=== PATIENT | female | born 1960 | race Caucasian/White ===

== ENCOUNTER 2017-02-21 08:38 | Inpatient (IN) | payer MEDICAID ==
--- NOTE | 2017-02-21 10:10 | US ---
VL Duplex Lwr Ext Veins Comp INDICATION: PAIN IN CALF FINDINGS: Ultrasound examination of bilateral lower extremities using Doppler and compressive techniq ue demonstrates that the common femoral, femoral, and popliteal veins are patent, and negative for th rombus. The calf veins were segmentally visualized and are negative where seen. IMPRESSION: Bilateral lower extremities negative for deep venous thrombosis.
[2017-02-21] MEDS ORDERED: Lidocaine 2% 20 ML MDV ONE (11:32)
[2017-02-21] MEDS ORDERED: Bupivacaine 0.5% 50 ML MDV ONE (11:32)
[2017-02-21] MEDS ORDERED: Propofol 200 MG/20 ML SDV ONE ×2 (11:39→12:43)
[2017-02-21] MEDS ORDERED: Lactated Ringers 1,000 ML IV SCH (11:45)
[2017-02-21] MEDS ORDERED: ceFAZolin 2 GM in Premix Bag 1 BAG IV ONE (12:00)
[2017-02-21] MEDS ORDERED: ceFAZolin 2 GM in Sodium Chloride 0.9% 50 ML IV ONE (12:00)
[2017-02-21] MEDS ORDERED: Midazolam 1 MG/ML 2 ML SDV ONE (12:25)
[2017-02-21] MEDS ORDERED: fentaNYL 100 MCG/2 ML SDV ONE (12:25)
[2017-02-21] MEDS ORDERED: fentaNYL 100 MCG/2 ML SDV IVPUSH ONE ×2 (13:28→14:00)
[2017-02-21] MEDS ORDERED: Ondansetron 4 MG Tab.DIS PO PRN (14:41)
[2017-02-21] MEDS ORDERED: Non-Formulary Medication 1 Each (Hydroxyzine Pamoate [Vistaril] 25 MG) PO PRN (14:41)
[2017-02-21] MEDS ORDERED: oxyCODONE 5 MG Tab PO PRN (14:41)
[2017-02-21] MEDS ORDERED: Morphine 2 MG/ML Syringe IVPUSH PRN (14:41)
[2017-02-21] MEDS ORDERED: Acetaminophen 325 MG Tab PO PRN (14:41)
[2017-02-21] MEDS ORDERED: Ondansetron 4 MG/2 ML SDV IV PRN (14:41)
--- NOTE | 2017-02-21 14:47 | PCM.PN ---
- General Info Date of Service: 02/21/17 Functional Status: Reports: Pain Controlled - Review of Systems General: Denies: Fever Musculoskeletal: Reports: Foot Pain Skin: Reports: Rash Systems Review Comment:: Estefany was admitted following surgical debridement and drainage of an abscess on her right foot. Her pain has been fairly well-controlled since that time though it has been building up more recently. She reports moderate pain at this time which is similar to before surgery. Vital signs have been stable since surgery. Gram stain did not reveal any bacteria. Wound culture is pending at this time. Patient does report a history of liver enzyme elevation secondary to Pip/Tazo. - Patient Data Vitals - Most Recent: Last Vital Signs Temp 36.7 C 02/21/17 14:34 Pulse 60 02/21/17 14:34 Resp 18 02/21/17 14:34 BP 142/73 H 02/21/17 14:34 Pulse Ox 92 L 02/21/17 14:17 Weight - Most Recent: 68.039 kg Lab Results Last 24 Hours: Laboratory Results - last 24 hr 02/21/17 02/21/17 02/21/17 Range/Units 09:16 09:16 10:27 WBC 8.6 (4.5-11.0) K/uL RBC 4.22 (3.30-5.50) M/uL Hgb 11.9 L (12.0-15.0) g/dL Hct 36.0 (36.0-48.0) % MCV 85 (80-98) fL MCH 28 (27-31) pg MCHC 33 (32-36) % Plt Count 424 H (150-400) K/uL Neut % (Auto) 78 H (36-66) % Lymph % (Auto) 12 L (24-44) % [place] % (Auto) 7 H (2-6) % Eos % (Auto) 2 (2-4) % Baso % (Auto) 1 (0-1) % ESR 77 H (0-25) mm/hr Sodium 136 L (140-148) mmol/L Potassium 4.4 (3.6-5.2) mmol/L Chloride 99 L (100-108) mmol/L Carbon Dioxide 26 (21-32) mmol/L Anion Gap 15.4 H (5.0-14.0) mmol/L BUN 9 (7-18) mg/dL Creatinine 0.8 (0.6-1.0) mg/dL Est Cr Clr Drug Dosing TNP Estimated GFR (MDRD) > 60 (>60) Glucose 102 (74-106) mg/dL Calcium 8.9 (8.5-10.1) mg/dL C-Reactive Protein 3.86 H (0.0-0.3) mg/dL Howard Results Last 24 Hours: Microbiology 02/21/17 13:00 Gram Stain - Final Foot, Right Med Orders - Current: Current Medications Lactated Ringer's (Ringers, Lactated) 1,000 mls @ 0 mls/hr IV ASDIRECTED LISA PRN Reason: KVO Last Admin: 02/21/17 11:52 Dose: 50 mls/hr Discontinued Medications Bupivacaine HCl (Marcaine 0.5%) Confirm Administered Dose 50 ml .ROUTE .STK-MED ONE Stop: 02/21/17 11:33 Last Admin: 02/21/17 12:40 Dose: 15 ml Fentanyl (Sublimaze) Confirm Administered Dose 100 mcg .ROUTE .STK-MED ONE Stop: 02/21/17 12:26 Fentanyl (Sublimaze) 50 - 100 mcg IVPUSH ONETIME ONE Stop: 02/21/17 13:29 Last Admin: 02/21/17 13:40 Dose: 50 mcg Fentanyl (Sublimaze) 50 mcg IVPUSH ONETIME ONE Stop: 02/21/17 14:01 Last Admin: 02/21/17 13:58 Dose: 50 mcg Cefazolin Sodium 2 gm/ Sodium (Chloride) 50 mls @ 100 mls/hr IV ONETIME ONE Stop: 02/21/17 12:29 Last Admin: 02/21/17 12:26 Dose: 100 mls/hr Lidocaine HCl (Xylocaine 2%) Confirm Administered Dose 20 ml .ROUTE .STK-MED ONE Stop: 02/21/17 11:33 Last Admin: 02/21/17 12:40 Dose: 15 ml Midazolam HCl (Versed 1 Mg/Ml) Confirm Administered Dose 2 mg .ROUTE .STK-MED ONE Stop: 02/21/17 12:26 Propofol (Diprivan 20 Ml) Confirm Administered Dose 200 mg .ROUTE .STK-MED ONE Stop: 02/21/17 11:40 Propofol (Diprivan 20 Ml) Confirm Administered Dose 200 mg .ROUTE .STK-MED ONE Stop: 02/21/17 12:44 - Exam Quality Assessment: No: Supplemental Oxygen General: Alert, Oriented, Cooperative, No Acute Distress Neck: Supple Lungs: Clear to Auscultation, Normal Respiratory Effort Cardiovascular: Regular Rate, Regular Rhythm, No Murmurs GI/Abdominal Exam: Soft, No Distention Extremities: Pedal Edema (bilateral pitting edema to mid denney). No: Joint Swelling Skin: Warm, Dry, Rash (erythematous rash with some overlying silvery scale mostly in the antecubital fossa bilaterally but also noted around the neck and anterior lower legs) Psy/Mental Status: Alert, Normal Affect - Problem List & Annotations (1) Cellulitis and abscess of right lower extremity SNOMED Code(s): 162474207 Code(s): L03.115 - CELLULITIS OF RIGHT LOWER LIMB; L02.415 - CUTANEOUS ABSCESS OF RIGHT LOWER LIMB Status: Acute Current Visit: Yes (2) Rash SNOMED Code(s): 437702518 Code(s): R21 - RASH AND OTHER NONSPECIFIC SKIN ERUPTION Status: Acute Current Visit: Yes (3) Essential hypertension SNOMED Code(s): 41826980 Code(s): I10 - ESSENTIAL (PRIMARY) HYPERTENSION Status: Chronic Current Visit: Yes - Problem List Review Problem List Initiated/Reviewed/Updated: Yes - My Orders Last 24 Hours: My Active Orders 02/21/17 14:41 Patient Status [ADT] Routine Bedrest Bathroom Privileges [RC] ASDIRECTED Oxygen Therapy [RC] PRN VTE/DVT Education [RC] Per Unit Routine Vital Signs [RC] Q4H Acetaminophen [Tylenol] 650 mg PO Q4H PRN Docusate Sodium/Sennosides [Senna Plus] 1 tab PO BID PRN Ibuprofen [Motrin] 600 mg PO Q6H PRN Morphine 2 - 4 mg IVPUSH Q2H PRN Ondansetron [Zofran ODT] 4 mg PO Q6H PRN Ondansetron [Zofran] 4 mg IV Q6H PRN hydrOXYzine Pamoate [Vistaril] 25 mg PO Q8H PRN oxyCODONE 5 mg PO Q4H PRN Resuscitation Status Routine 02/21/17 14:42 Intake and Output [RC] QSHIFT Notify Provider Vital Signs [RC] ASDIRECTED 02/21/17 14:45 Sodium Chloride 0.9% [Normal Saline] 1,000 ml IV ASDIRECTED 02/21/17 15:00 Piperacillin/Tazobactam [Zosyn] 3.375 gm Sodium Chloride 0.9% [Normal Saline] 50 ml IV Q6H Vancomycin 1.25 gm Sodium Chloride 0.9% [Normal Saline] 250 ml IV ONETIME 02/21/17 Dinner Regular Diet [DIET] 02/22/17 03:00 Vancomycin 1 gm Sodium Chloride 0.9% [Normal Saline] 250 ml IV Q12H 02/22/17 05:11 BASIC METABOLIC PANEL,BMP [CHEM] AM CBC W/O DIFF,HEMOGRAM [HEME] AM 02/22/17 09:00 Aspirin [Ecotrin] 325 mg PO DAILY Enoxaparin [Lovenox] 40 mg SUBCUT DAILY Escitalopram [Lexapro] 20 mg PO DAILY amLODIPine [Norvasc] 10 mg PO DAILY buPROPion [Wellbutrin SR] 450 mg PO DAILY - Plan Plan:: ASSESSMENT AND PLAN - Abscess and cellulitis right foot - had been on outpatient antibiotics and was getting worse despite this management. Status post incision and debridement in the operating room today. Gram stain did not reveal any bacteria. Cultures are pending. -Pain control -Antibiotic coverage with vancomycin and meropenem -Follow-up cultures -Surgical follow-up with Dr. Rogel and Dr. Garcia -local wound care per surgical team Rash - mostly in flexor areas, appears consistent with psoriasis with some silver scale over an erythematous base. Has not responded to nystatin cream or essential oils. No family history. -Trial of triamcinolone essential hypertension - usual medications will be continued. Lower extremity edema - chronic issue, previous cardiac workup was negative. Suspect chronic venous stasis. Unable to use compression socks at this time because of cellulitis on the right leg. No evidence for DVT. -Elevate legs Maintenance issues -DVT - enoxaparin -GI - not indicated Admission justification - This patient will be admitted for inpatient services and is medically appropriate meeting medical necessity for inpatient admission as outlined in my documentation. I reasonably expect the patient will require inpatient services that span a period time over 2 midnights. I reasonably expect this patient to be discharged or transferred within 96 hours after admission to the [facility]. Disposition - anticipate discharge to home after the hospital stay Primary care provider - Diana Hernandez M.D.
[2017-02-21] MEDS ORDERED: hydrOXYzine HCl 25 MG Tab PO PRN (14:58)
[2017-02-21] MEDS ORDERED: Piperacillin/Tazobactam 3.375 GM in Sodium Chloride 0.9% 50 ML IV SCH (15:00)
[2017-02-21] MEDS: Ibuprofen 600 MG Tab PO PRN ×2 (15:00→21:16)
[2017-02-21] MEDS: Sodium Chloride 0.9% 1,000 ML IV SCH (15:04)
[2017-02-21] MEDS ORDERED: Piperacillin/Tazobactam/Dext 3.375 GM in Premix Bag 1 BAG IV SCH (16:00)
[2017-02-21] MEDS: Triamcinolone Acetonide 0.1% Crm 15 GM Tube TOP SCH ×2 (16:37→21:13)
[2017-02-21] MEDS: Escitalopram 20 MG Tab PO SCH (16:38)
[2017-02-21] MEDS: amLODIPine 10 MG Tab PO SCH (16:38)
[2017-02-21] MEDS: buPROPion 150 MG Tab.ER PO SCH (16:41)
[2017-02-21] MEDS: Meropenem 1 GM in Sodium Chloride 0.9% 100 ML IV SCH (17:22)
--- NOTE | 2017-02-21 18:49 | OR ---
DATE OF PROCEDURE: 02/21/2017 DOCUMENT ADVISOR: None. PREOPERATIVE DIAGNOSIS: Abscess, right foot. POSTOPERATIVE DIAGNOSIS: Abscess, right foot. PROCEDURE: Incision and drainage of abscess, right foot. ANESTHESIA: Local with IV sedation. HEMOSTASIS: None. ESTIMATED BLOOD LOSS: 20 mL. MATERIALS: None. INJECTABLES: 8 mL of Marcaine 0.5% plain were injected intraoperatively. PATHOLOGY: Aerobic and anaerobic cultures were taken. CONDITION: Stable. INDICATIONS: Abscess of right foot with cellulitis. PROCEDURE IN DETAIL: The patient was brought to the operating room, placed on the operating table in supine position. Following local anesthesia with 20 mL of 1:1 mixture of lidocaine 2% plain Marcaine 0.5% plain. The right foot was scrubbed, prepped and draped in the usual aseptic manner. An incision was made on the dorsal aspect of the right foot along where the abscess was, and incisions were carried down to the subcutaneous layer where a great deal of purulent drainage came out of. Deep cultures were taken from within the abscess both aerobic and anaerobic. The necrotic tissue was excised with a 15 blade from the inside of where the abscess was and it was flushed out with 0.5 L of sterile saline. It did probe down to the plate, however, due to the fact that there was no signs of loosening of plate on CT scan taken a few days ago, the plate and screws were left intact and the area was packed with quarter-inch iodoform gauze and 2 retention simple sutures were placed. Foot was dressed with Xeroform, 4x4s, Kerlix, and Coban. The patient was returned to recovery room with vital signs stable and vascular status intact to both feet. The patient to be admitted and placed on IV Vanco and Zosyn. Antibiotics will be adjusted per culture and sensitivity results, expect to keep the patient in-house for 2 to 3 days of IV antibiotics, possibly longer will be managed. Surgical management will be done by Dr. Garcia medical management per hospitalist. Abdulkadir Luna DPM /[id number]
[2017-02-21] MEDS: oxyCODONE 5 MG Tab PO PRN ×2 (19:26→23:31)
[2017-02-22] MEDS: Meropenem 1 GM in Sodium Chloride 0.9% 100 ML IV SCH ×3 (00:49→17:21)
[2017-02-22] MEDS: Sodium Chloride 0.9% 1,000 ML IV SCH (03:27)
[2017-02-22] MEDS: oxyCODONE 5 MG Tab PO PRN ×5 (03:46→23:11)
[2017-02-22] MEDS: Ibuprofen 600 MG Tab PO PRN ×4 (03:46→23:10)
[2017-02-22] MEDS ORDERED: Escitalopram 20 MG Tab PO SCH (09:00)
[2017-02-22] MEDS ORDERED: buPROPion 150 MG Tab.ER PO SCH (09:00)
[2017-02-22] MEDS ORDERED: amLODIPine 10 MG Tab PO SCH (09:00)
[2017-02-22] MEDS ORDERED: buPROPion 150 MG Tab.SR PO SCH (09:00)
[2017-02-22] MEDS ORDERED: Aspirin 325 MG Tab.EC PO SCH (09:00)
--- NOTE | 2017-02-22 09:02 | PCM.PN ---
- General Info Date of Service: 02/22/17 Functional Status: Reports: Pain Controlled, Tolerating Diet - Review of Systems General: Denies: Fever Musculoskeletal: Reports: Foot Pain Systems Review Comment:: no acute events overnight. No fevers overnight. Right foot pain has improved dramatically from yesterday. Rash on her neck and antecubital fossa areas has improved. Leg swelling is down a little from yesterday. Wound culture from the abscess is growing staph species with identification and susceptibility still pending. - Patient Data Vitals - Most Recent: Last Vital Signs Temp 36.1 C 02/22/17 07:30 Pulse 84 02/22/17 07:30 Resp 18 02/22/17 07:30 BP 125/80 02/22/17 07:30 Pulse Ox 95 02/22/17 07:30 Weight - Most Recent: 68.039 kg I&O - Last 24 Hours: Intake & Output 02/21/17 02/22/17 02/22/17 22:59 06:59 14:59 Intake Total 1150 1350 Output Total 650 1200 650 Balance 500 150 -650 Lab Results Last 24 Hours: Laboratory Results - last 24 hr 02/21/17 02/21/17 02/21/17 Range/Units 09:16 09:16 10:27 WBC 8.6 (4.5-11.0) K/uL RBC 4.22 (3.30-5.50) M/uL Hgb 11.9 L (12.0-15.0) g/dL Hct 36.0 (36.0-48.0) % MCV 85 (80-98) fL MCH 28 (27-31) pg MCHC 33 (32-36) % Plt Count 424 H (150-400) K/uL Neut % (Auto) 78 H (36-66) % Lymph % (Auto) 12 L (24-44) % [place] % (Auto) 7 H (2-6) % Eos % (Auto) 2 (2-4) % Baso % (Auto) 1 (0-1) % ESR 77 H (0-25) mm/hr Sodium 136 L (140-148) mmol/L Potassium 4.4 (3.6-5.2) mmol/L Chloride 99 L (100-108) mmol/L Carbon Dioxide 26 (21-32) mmol/L Anion Gap 15.4 H (5.0-14.0) mmol/L BUN 9 (7-18) mg/dL Creatinine 0.8 (0.6-1.0) mg/dL Est Cr Clr Drug Dosing TNP Estimated GFR (MDRD) > 60 (>60) Glucose 102 (74-106) mg/dL Calcium 8.9 (8.5-10.1) mg/dL C-Reactive Protein 3.86 H (0.0-0.3) mg/dL 02/22/17 02/22/17 Range/Units 04:34 04:34 WBC 8.2 (4.5-11.0) K/uL RBC 3.62 (3.30-5.50) M/uL Hgb 10.2 L (12.0-15.0) g/dL Hct 31.4 L (36.0-48.0) % MCV 87 (80-98) fL MCH 28 (27-31) pg MCHC 33 (32-36) % Plt Count 387 (150-400) K/uL Neut % (Auto) (36-66) % Lymph % (Auto) (24-44) % [place] % (Auto) (2-6) % Eos % (Auto) (2-4) % Baso % (Auto) (0-1) % ESR (0-25) mm/hr Sodium 135 L (140-148) mmol/L Potassium 4.3 (3.6-5.2) mmol/L Chloride 102 (100-108) mmol/L Carbon Dioxide 25 (21-32) mmol/L Anion Gap 12.3 (5.0-14.0) mmol/L BUN 9 (7-18) mg/dL Creatinine 0.8 (0.6-1.0) mg/dL Est Cr Clr Drug Dosing 61.36 Estimated GFR (MDRD) > 60 (>60) Glucose 99 (74-106) mg/dL Calcium 8.0 L (8.5-10.1) mg/dL C-Reactive Protein (0.0-0.3) mg/dL Howard Results Last 24 Hours: Microbiology 02/21/17 13:00 Gram Stain - Final Foot, Right Wound Culture - Preliminary Anaerobic Culture - Preliminary NO GROWTH AFTER 1 DAY Med Orders - Current: Current Medications Acetaminophen (Tylenol) 650 mg PO Q4H PRN PRN Reason: Pain (Mild 1-3)/fever Amlodipine Besylate (Norvasc) 10 mg PO QPM [facility] Last Admin: 02/21/17 16:38 Dose: 10 mg Bupropion HCl (Wellbutrin Xl) 450 mg PO QPM [facility] Last Admin: 02/21/17 16:41 Dose: 450 mg Enoxaparin Sodium (Lovenox) 40 mg SUBCUT DAILY [facility] Escitalopram Oxalate (Lexapro) 20 mg PO QPM [facility] Last Admin: 02/21/17 16:38 Dose: 20 mg Hydroxyzine HCl (Atarax) 25 mg PO Q8H PRN PRN Reason: Itching Sodium Chloride (Normal Saline) 1,000 mls @ 100 mls/hr IV ASDIRECTED [facility] Last Admin: 02/22/17 03:27 Dose: 100 mls/hr Vancomycin HCl 1 gm/ Sodium (Chloride) 250 mls @ 167 mls/hr IV Q12H [facility] Last Admin: 02/22/17 03:28 Dose: 167 mls/hr Meropenem 1 gm/ Sodium (Chloride) 100 mls @ 200 mls/hr IV Q8H [facility] Last Admin: 02/22/17 00:49 Dose: 200 mls/hr Ibuprofen (Motrin) 600 mg PO Q6H PRN PRN Reason: Pain/Fever Last Admin: 02/22/17 03:46 Dose: 600 mg Morphine Sulfate (Morphine) 2 - 4 mg IVPUSH Q2H PRN PRN Reason: Pain (severe 7-10) Last Admin: 02/21/17 15:00 Dose: 2 mg Ondansetron HCl (Zofran Odt) 4 mg PO Q6H PRN PRN Reason: Nausea able to take PO Ondansetron HCl (Zofran) 4 mg IV Q6H PRN PRN Reason: Nausea/Vomiting Oxycodone HCl (Oxycodone) 5 - 10 mg PO Q4H PRN PRN Reason: Pain (moderate 4-6) Last Admin: 02/22/17 08:09 Dose: 10 mg Senna/Docusate Sodium (Senna Plus) 1 tab PO BID PRN PRN Reason: Constipation Triamcinolone Acetonide (Triamcinolone Acetonide 0.1% Crm) 0 gm TOP BID [facility] Last Admin: 02/21/17 21:13 Dose: 1 applic Discontinued Medications Amlodipine Besylate (Norvasc) 10 mg PO DAILY [facility] Aspirin (Ecotrin) 325 mg PO DAILY LISA Bupivacaine HCl (Marcaine 0.5%) Confirm Administered Dose 50 ml .ROUTE .STK-MED ONE Stop: 02/21/17 11:33 Last Admin: 02/21/17 12:40 Dose: 15 ml Bupropion HCl (Wellbutrin Xl) 450 mg PO DAILY LISA Escitalopram Oxalate (Lexapro) 20 mg PO DAILY [facility] Fentanyl (Sublimaze) Confirm Administered Dose 100 mcg .ROUTE .STK-MED ONE Stop: 02/21/17 12:26 Fentanyl (Sublimaze) 50 - 100 mcg IVPUSH ONETIME ONE Stop: 02/21/17 13:29 Last Admin: 02/21/17 13:40 Dose: 50 mcg Fentanyl (Sublimaze) 50 mcg IVPUSH ONETIME ONE Stop: 02/21/17 14:01 Last Admin: 02/21/17 13:58 Dose: 50 mcg Lactated Ringer's (Ringers, Lactated) 1,000 mls @ 0 mls/hr IV ASDIRECTED LISA PRN Reason: KVO Last Admin: 02/21/17 11:52 Dose: 50 mls/hr Cefazolin Sodium 2 gm/ Sodium (Chloride) 50 mls @ 100 mls/hr IV ONETIME ONE Stop: 02/21/17 12:29 Last Admin: 02/21/17 12:26 Dose: 100 mls/hr Vancomycin HCl 1.25 gm/ Sodium (Chloride) 250 mls @ 167 mls/hr IV ONETIME ONE Stop: 02/21/17 16:29 Last Admin: 02/21/17 15:26 Dose: 167 mls/hr Piperacillin/Tazobactam/ (Dextrose 3.375 gm/ Premix) 50 mls @ 100 mls/hr IV Q6H [facility] Lidocaine HCl (Xylocaine 2%) Confirm Administered Dose 20 ml .ROUTE .STK-MED ONE Stop: 02/21/17 11:33 Last Admin: 02/21/17 12:40 Dose: 15 ml Midazolam HCl (Versed 1 Mg/Ml) Confirm Administered Dose 2 mg .ROUTE .STK-MED ONE Stop: 02/21/17 12:26 Oxycodone HCl (Oxycodone) 5 mg PO Q4H PRN PRN Reason: Pain (moderate 4-6) Last Admin: 02/21/17 15:00 Dose: 5 mg Propofol (Diprivan 20 Ml) Confirm Administered Dose 200 mg .ROUTE .STK-MED ONE Stop: 02/21/17 11:40 Propofol (Diprivan 20 Ml) Confirm Administered Dose 200 mg .ROUTE .STK-MED ONE Stop: 02/21/17 12:44 - Exam Quality Assessment: No: Supplemental Oxygen General: Alert, Oriented, Cooperative, No Acute Distress Neck: Supple Lungs: Normal Respiratory Effort Extremities: Pedal Edema, Other (right foot wrapped in dry intact surgical dressings) Skin: Warm, Dry, Rash (mild remaining erythema around the neck and both AC fossa locations but much improved) Psy/Mental Status: Alert, Normal Affect - Problem List & Annotations (1) Cellulitis and abscess of right lower extremity SNOMED Code(s): 978601311 Code(s): L03.115 - CELLULITIS OF RIGHT LOWER LIMB; L02.415 - CUTANEOUS ABSCESS OF RIGHT LOWER LIMB Status: Acute Current Visit: Yes (2) Rash SNOMED Code(s): 734608168 Code(s): R21 - RASH AND OTHER NONSPECIFIC SKIN ERUPTION Status: Acute Current Visit: Yes (3) Essential hypertension SNOMED Code(s): 06140951 Code(s): I10 - ESSENTIAL (PRIMARY) HYPERTENSION Status: Chronic Current Visit: Yes - Problem List Review Problem List Initiated/Reviewed/Updated: Yes - My Orders Last 24 Hours: My Active Orders 02/21/17 14:41 Patient Status [ADT] Routine Bedrest Bathroom Privileges [RC] ASDIRECTED Oxygen Therapy [RC] PRN VTE/DVT Education [RC] Per Unit Routine Vital Signs [RC] Q4H Acetaminophen [Tylenol] 650 mg PO Q4H PRN Docusate Sodium/Sennosides [Senna Plus] 1 tab PO BID PRN Ibuprofen [Motrin] 600 mg PO Q6H PRN Morphine 2 - 4 mg IVPUSH Q2H PRN Ondansetron [Zofran ODT] 4 mg PO Q6H PRN Ondansetron [Zofran] 4 mg IV Q6H PRN Resuscitation Status Routine 02/21/17 14:42 Intake and Output [RC] QSHIFT Notify Provider Vital Signs [RC] ASDIRECTED 02/21/17 14:45 Sodium Chloride 0.9% [Normal Saline] 1,000 ml IV ASDIRECTED 02/21/17 14:58 hydrOXYzine HCl [Atarax] 25 mg PO Q8H PRN 02/21/17 15:34 oxyCODONE 5 - 10 mg PO Q4H PRN 02/21/17 16:00 Triamcinolone Acetonide [Triamcinolone Acetonide 0.1% Crm] 0 gm TOP BID 02/21/17 17:00 Escitalopram [Lexapro] 20 mg PO QPM Meropenem [Merrem] 1 gm Sodium Chloride 0.9% [Normal Saline] 100 ml IV Q8H amLODIPine [Norvasc] 10 mg PO QPM buPROPion [Wellbutrin XL] 450 mg PO QPM 02/21/17 Dinner Regular Diet [DIET] 02/22/17 03:00 Vancomycin 1 gm Sodium Chloride 0.9% [Normal Saline] 250 ml IV Q12H 02/22/17 09:00 Enoxaparin [Lovenox] 40 mg SUBCUT DAILY - Plan Plan:: ASSESSMENT AND PLAN - Abscess and cellulitis right foot - pain better. No fevers. Culture is growing staph with identification pending. -Pain control -Antibiotic coverage with vancomycin and meropenem -Follow-up cultures -Surgical follow-up with Dr. Rogel and Dr. Garcia -local wound care per surgical team Rash - mostly in flexor areas, appears consistent with psoriasis with some silver scale over an erythematous base. seems better today after just a couple of doses of triamcinolone. -Trial of triamcinolone Essential hypertension - usual medications will be continued. Lower extremity edema - chronic issue, previous cardiac workup was negative. Suspect chronic venous stasis. Unable to use compression socks at this time because of cellulitis on the right leg. No evidence for DVT. -Elevate legs Maintenance issues -DVT - enoxaparin -GI - not indicated Disposition - anticipate discharge to home after the hospital stay Kaz Hernandez M.D.
[2017-02-22] MEDS ORDERED: Sodium Chloride 0.9% 1,000 ML IV SCH (09:05)
[2017-02-22] MEDS: Enoxaparin 40 MG/0.4 ML Syringe SUBCUT SCH (09:07)
[2017-02-22] MEDS: Triamcinolone Acetonide 0.1% Crm 15 GM Tube TOP SCH ×2 (09:19→21:33)
[2017-02-22] MEDS: buPROPion 150 MG Tab.ER PO SCH (17:22)
[2017-02-22] MEDS: Escitalopram 20 MG Tab PO SCH (17:22)
[2017-02-22] MEDS: amLODIPine 10 MG Tab PO SCH (17:24)
[2017-02-23] MEDS: Meropenem 1 GM in Sodium Chloride 0.9% 100 ML IV SCH ×2 (01:20→08:53)
[2017-02-23] MEDS: oxyCODONE 5 MG Tab PO PRN ×3 (03:33→13:31)
[2017-02-23] MEDS: Ibuprofen 600 MG Tab PO PRN ×2 (05:20→13:31)
[2017-02-23] MEDS: Triamcinolone Acetonide 0.1% Crm 15 GM Tube TOP SCH (08:57)
[2017-02-23] MEDS: Enoxaparin 40 MG/0.4 ML Syringe SUBCUT SCH (08:57)
[2017-02-23] MEDS ORDERED: Sulfamethoxazole/Trimethoprim 800-160 MG Tab PO SCH (09:45)
[2017-02-23 11:34] VITALS: BP 128/77
--- NOTE | 2017-02-23 15:40 | PCM.DCSUM1 ---
Discharge Summary - Hospital Course Brief History: 56-year-old female with history of right foot Pseudomonas infection involving surgical hardware who presented with redness, pain and swelling of the right foot. She was admitted for surgical management and debridement of right foot abscess. - Discharge Data Discharge Date: 02/23/17 Discharge Disposition: Home, Self-Care 01 Condition: Good - Discharge Diagnosis/Problem(s) (1) Cellulitis and abscess of right lower extremity SNOMED Code(s): 964760444 ICD Code: L03.115 - CELLULITIS OF RIGHT LOWER LIMB; L02.415 - CUTANEOUS ABSCESS OF RIGHT LOWER LIMB Status: Acute Current Visit: Yes (2) Rash SNOMED Code(s): 275878100 ICD Code: R21 - RASH AND OTHER NONSPECIFIC SKIN ERUPTION Status: Acute Current Visit: Yes (3) Essential hypertension SNOMED Code(s): 35912864 ICD Code: I10 - ESSENTIAL (PRIMARY) HYPERTENSION Status: Chronic Current Visit: Yes - Patient Summary/Data Hospital Course: Estefany presented to the podiatry clinic with right foot swelling, redness and pain. Workup in the clinic was concerning for abscess of the right foot. She had a preoperative history and physical performed and was taken to the operating room for surgical intervention. Dr. Luna drain the abscess on the right foot and sent cultures. The wound was packed and covered and she was admitted to the hospital for IV antibiotic therapy. Over the next couple of days she had decreasing pain each day as well as improving function. She has not had any fevers. Vital signs have all been stable. Her wound culture did eventually grow out MSSA. Antibiotics were transitioned to Bactrim based on sensitivities. She tolerated the first dose of this antibiotic well. She is comfortable getting around because she is used to using crutches as well as a knee scooter. She has received wound care follow-up with Dr. Garcia and her next dressing change is planned for 2 days from now. I believe she is safe for outpatient management at this time. She'll be discharged home with a 10 day course of Bactrim. She has some oxycodone available for pain. She has supplies for her initial dressing change and will be following up in 4-5 days time. On the day of discharge we did note swelling underneath her tongue. I suspect that she has clogged salivary ducts. I encouraged her to utilize plenty of fluid as well as hard candies to help stimulate saliva production. - Patient Instructions Diet: Regular Diet as Tolerated Activity: As Tolerated Showering/Bathing: May Shower Notify Provider of: Fever, Increased Pain, Nausea and/or Vomiting Other/Special Instructions: 1. You were in the hospital for surgical management with incision and debridement of a right foot abscess. The abscess material grew out staph aureus. I recommend daily dressing changes as well as 10 days of trimethoprim/sulfamethoxazole. You will take this antibiotic twice daily with food. Your next dose is due tonight. 2. Please continue your other medications as previously prescribed. 3. I recommend that you continue to use the triamcinolone cream for the rash involving your neck, elbows and lower legs. You should use this medication twice daily. 4. Follow up with Dr Luna next week. 5. Dressing change instructions - on Monday remove old packing and rinse in the shower. It is ok to allow soap and water to wash over the area but do not soak in the tub. Re-pack with iodoform guaze and then cover with Telfa. Wrap with kerlix gauze and finally secure with TIAGO wrap. 6. Please seek medical attention if you develop fever greater than 101, have severe pain in your foot or right leg, generalized skin rash or if you develop persistent vomiting or diarrhea - Discharge Plan Prescriptions/Med Rec: oxyCODONE 5 - 10 mg PO Q4H PRN #30 tablet PRN Reason: Pain Sulfamethoxazole/Trimethoprim [IJD: Sulfamethoxazole/Trimethoprim DS] 1 tab PO BID #20 tablet Triamcinolone Acetonide [Kenalog 0.1% Crm] 1 g TOP BID #1 tube Home Medications: Home Meds Escitalopram [Lexapro] 20 mg PO DAILY 01/29/13 [History] amLODIPine [Norvasc] 10 mg PO DAILY 07/31/15 [History] hydrOXYzine Pamoate [Vistaril] 25 mg PO Q8H PRN 07/31/15 [History] Ibuprofen [Advil] 300 mg PO TID 02/21/17 [History] Nystatin [Nystatin Crm] 1 film TOP BID 02/21/17 [History] buPROPion [buPROPion XL] 450 mg PO DAILY 02/21/17 [History] Sulfamethoxazole/Trimethoprim [IJD: Sulfamethoxazole/Trimethoprim DS] 1 tab PO BID #20 tablet 02/23/17 [Rx] Triamcinolone Acetonide [Kenalog 0.1% Crm] 1 g TOP BID #1 tube 02/23/17 [Rx] oxyCODONE 5 - 10 mg PO Q4H PRN #30 tablet 02/23/17 [Rx] Patient Handouts: Abscess, Sulfamethoxazole; Trimethoprim, SMX-TMP tablets Referrals: Abdulkadir Luna DPM [Physician] - 02/27/17 (f/u next Monday or Monday ) - Discharge Summary/Plan Comment DC Time >30 min.: Yes (40 - complex discharge involving wound care instruction) - Patient Data Vitals - Most Recent: Last Vital Signs Temp 36.6 C 02/23/17 11:32 Pulse 85 02/23/17 11:32 Resp 16 02/23/17 11:32 BP 128/77 02/23/17 11:32 Pulse Ox 93 L 02/23/17 11:32 Weight - Most Recent: 68.039 kg I&O - Last 24 hours: Intake & Output 02/23/17 02/23/17 02/23/17 06:59 14:59 22:59 Intake Total 1398 580 Output Total 1300 1300 Balance 98 -720 BRYN Results - Last 24 hrs: Microbiology 02/21/17 13:00 Gram Stain - Final Foot, Right Wound Culture - Final Staphylococcus Aureus Anaerobic Culture - Preliminary NO GROWTH AFTER 2 DAYS Med Orders - Current: Current Medications Acetaminophen (Tylenol) 650 mg PO Q4H PRN PRN Reason: Pain (Mild 1-3)/fever Last Admin: 02/23/17 07:33 Dose: 650 mg Amlodipine Besylate (Norvasc) 10 mg PO QPM [facility] Last Admin: 02/22/17 17:24 Dose: 10 mg Bupropion HCl (Wellbutrin Xl) 450 mg PO QPM [facility] Last Admin: 02/22/17 17:22 Dose: 450 mg Enoxaparin Sodium (Lovenox) 40 mg SUBCUT DAILY [facility] Last Admin: 02/23/17 08:57 Dose: 40 mg Escitalopram Oxalate (Lexapro) 20 mg PO QPM [facility] Last Admin: 02/22/17 17:22 Dose: 20 mg Hydroxyzine HCl (Atarax) 25 mg PO Q8H PRN PRN Reason: Itching Ibuprofen (Motrin) 600 mg PO Q6H PRN PRN Reason: Pain/Fever Last Admin: 02/23/17 13:31 Dose: 600 mg Morphine Sulfate (Morphine) 2 - 4 mg IVPUSH Q2H PRN PRN Reason: Pain (severe 7-10) Last Admin: 02/21/17 15:00 Dose: 2 mg Ondansetron HCl (Zofran Odt) 4 mg PO Q6H PRN PRN Reason: Nausea able to take PO Last Admin: 02/22/17 17:21 Dose: 4 mg Ondansetron HCl (Zofran) 4 mg IV Q6H PRN PRN Reason: Nausea/Vomiting Oxycodone HCl (Oxycodone) 5 - 10 mg PO Q4H PRN PRN Reason: Pain (moderate 4-6) Last Admin: 02/23/17 13:31 Dose: 10 mg Senna/Docusate Sodium (Senna Plus) 1 tab PO BID PRN PRN Reason: Constipation Triamcinolone Acetonide (Triamcinolone Acetonide 0.1% Crm) 0 gm TOP BID [facility] Last Admin: 02/23/17 08:57 Dose: 1 applic Trimethoprim/Sulfamethoxazole (Septra Ds) 1 tab PO BID [facility] Last Admin: 02/23/17 11:46 Dose: 1 tab Discontinued Medications Amlodipine Besylate (Norvasc) 10 mg PO DAILY [facility] Aspirin (Ecotrin) 325 mg PO DAILY [facility] Bupivacaine HCl (Marcaine 0.5%) Confirm Administered Dose 50 ml .ROUTE .STK-MED ONE Stop: 02/21/17 11:33 Last Admin: 02/21/17 12:40 Dose: 15 ml Bupropion HCl (Wellbutrin Xl) 450 mg PO DAILY [facility] Escitalopram Oxalate (Lexapro) 20 mg PO DAILY [facility] Fentanyl (Sublimaze) Confirm Administered Dose 100 mcg .ROUTE .STK-MED ONE Stop: 02/21/17 12:26 Fentanyl (Sublimaze) 50 - 100 mcg IVPUSH ONETIME ONE Stop: 02/21/17 13:29 Last Admin: 02/21/17 13:40 Dose: 50 mcg Fentanyl (Sublimaze) 50 mcg IVPUSH ONETIME ONE Stop: 02/21/17 14:01 Last Admin: 02/21/17 13:58 Dose: 50 mcg Lactated Ringer's (Ringers, Lactated) 1,000 mls @ 0 mls/hr IV ASDIRECTED [facility] PRN Reason: KVO Last Admin: 02/21/17 11:52 Dose: 50 mls/hr Cefazolin Sodium 2 gm/ Sodium (Chloride) 50 mls @ 100 mls/hr IV ONETIME ONE Stop: 02/21/17 12:29 Last Admin: 02/21/17 12:26 Dose: 100 mls/hr Sodium Chloride (Normal Saline) 1,000 mls @ 100 mls/hr IV ASDIRECTED [facility] Last Admin: 02/22/17 03:27 Dose: 100 mls/hr Vancomycin HCl 1.25 gm/ Sodium (Chloride) 250 mls @ 167 mls/hr IV ONETIME ONE Stop: 02/21/17 16:29 Last Admin: 02/21/17 15:26 Dose: 167 mls/hr Vancomycin HCl 1 gm/ Sodium (Chloride) 250 mls @ 167 mls/hr IV Q12H [facility] Last Admin: 02/23/17 03:28 Dose: 167 mls/hr Piperacillin/Tazobactam/ (Dextrose 3.375 gm/ Premix) 50 mls @ 100 mls/hr IV Q6H [facility] Meropenem 1 gm/ Sodium (Chloride) 100 mls @ 200 mls/hr IV Q8H [facility] Last Admin: 02/23/17 08:53 Dose: 200 mls/hr Sodium Chloride (Normal Saline) 1,000 mls @ 25 mls/hr IV ASDIRECTED [facility] Lidocaine HCl (Xylocaine 2%) Confirm Administered Dose 20 ml .ROUTE .STK-MED ONE Stop: 02/21/17 11:33 Last Admin: 02/21/17 12:40 Dose: 15 ml Midazolam HCl (Versed 1 Mg/Ml) Confirm Administered Dose 2 mg .ROUTE .STK-MED ONE Stop: 02/21/17 12:26 Oxycodone HCl (Oxycodone) 5 mg PO Q4H PRN PRN Reason: Pain (moderate 4-6) Last Admin: 02/21/17 15:00 Dose: 5 mg Propofol (Diprivan 20 Ml) Confirm Administered Dose 200 mg .ROUTE .STK-MED ONE Stop: 02/21/17 11:40 Propofol (Diprivan 20 Ml) Confirm Administered Dose 200 mg .ROUTE .STK-MED ONE Stop: 02/21/17 12:44 - Exam Quality Assessment: Denies: Supplemental Oxygen General: Reports: Alert, Oriented, Cooperative HEENT: Reports: Other (swelling of sublingual tissue, likely secondary to clogged salivary ducts) Skin: Reports: Rash (mild erythema involving the neck and slightly onto the upper chest as well as the antecubital fossa and distal lower legs anteriorly) Psy/Mental Status: Reports: Alert, Normal Affect *Q Meaningful Use (DIS) - VTE *Q VTE Criteria *Q: - Stroke *Q Stroke Criteria *Q: - AMI *Q AMI Criteria *Q:
== END 2017-02-23 16:40 | disposition home or self-care (01) | DRG 603 ==
LOC: JP.SDS 08:38 → JP.MS 08:38 → JP.US 08:38 → EDSTATUS 09:30 → JP.MS 13:00 → JP.SDS 15:08 → JP.MS 15:08
PROVIDERS: ADMIT Internal Medicine; ATTEND Internal Medicine
PROC: 0J9Q0ZX Drainage of Right Foot Subcutaneous Tissue and Fascia, Open Approach, Diagnostic (ICD-10-PCS; principal; 2017-02-21)
DX: L03.115 Cellulitis of right lower limb (principal); R21 Rash and other nonspecific skin eruption; I10 Essential (primary) hypertension; Z86.73 Personal history of transient ischemic attack (TIA), and cerebral infarction without residual deficits; Z87.891 Personal history of nicotine dependence; Z79.82 Long term (current) use of aspirin; Z79.899 Other long term (current) drug therapy
CPT/HCPCS: 36415; 80048; 85025; 85027; 85651; 86140; 87070; 87075; 87077; 87186; 87205; 93970; 93970-26; A9270-GY; J0690; J1650; J2185; J2250; J2270; J2704; J3010; J3370; J7030; J7040; J7050; J7120

== ENCOUNTER 2024-11-03 14:22 | Emergency (ER) | payer MEDICARE, BC ==
[2024-11-03] MEDS: Acetaminophen/HYDROcodone 325-5 MG Tab PO ONE (16:22)
[2024-11-03 17:59] VITALS: BP 155/62; PULSE 88
== END 2024-11-03 18:23 | disposition home or self-care (01) ==
LOC: JP.ED 14:22
DX: S22.41XA Multiple fractures of ribs, right side, initial encounter for closed fracture (principal); S92.114A Nondisplaced fracture of neck of right talus, initial encounter for closed fracture; I10 Essential (primary) hypertension; Z86.73 Personal history of transient ischemic attack (TIA), and cerebral infarction without residual deficits; Z91.048 Other nonmedicinal substance allergy status; Z79.899 Other long term (current) drug therapy; W01.0XXA Fall on same level from slipping, tripping and stumbling without subsequent striking against object, initial encounter
CPT/HCPCS: 29515; 71100; 73610; 73700; 99284; A9270